=== PATIENT | female | born 1970 | race Caucasian/White ===

== ENCOUNTER 2016-11-18 09:50 | Emergency (ER) | payer MEDICAID ==
--- NOTE | 2016-11-18 10:39 | ED Physician Chart ---
Chief Complaint/HPI - Patient Information Date Seen:: 11/18/16 Time Seen:: 10:00 Chief Complaint:: trauma right small finger History of Present Illness:: 11 days ago getting up from supine position pushed herself up injuring right small finger. Is right hand dominant. Allergies:: Allergies Allergy/AdvReac Type Severity Reaction Status Date / Time No Known Allergies Allergy Verified 11/18/16 10:06 Vitals:: Vital Signs - 8 hr 11/18/16 10:06 Temp 98.5 F HR 78 RR 18 BP 123/74 O2 Sat % 97 Historian:: Patient Review:: Nurse's Note Reviewed Review of Systems - Review of Systems General/Constitutional: No fever Skin: No skin lesions Eyes: No loss of vision ENT: No earache Neck: No neck pain Cardio Vascular: No chest pain Pulmonary: No SOB GI: No nausea, No vomiting Musculoskeletal: Bone or joint pain Psychiatric: No prior psych history, No depression Hematopoietic: No bruising Allergic/Immuno: No urticaria Neurological: No syncope Past Medical History - Past Medical History Past Medical History: No significant medical hx Family History: Diabetes Melitus Social History: Non Smoker Surgical History: Hysterectomy Psychiatricy History: None Medication: None Family Medical History - Family Member Father Ethnicity: Hx Family Diabetes: Yes Physical Exam - Physical Examination General/Constitutional: Well-developed, well-nourished Head: Atraumatic Eyes: Lids, conjuctiva normal, PERRL Skin: Well hydrated ENMT: External ears, nose nl Neck: No nuchal rigidity Respiratory: Nl effort/Exclusion, Clear to Auscultation Cardio Vascular: RRR, No murmur, gallop, rubs GI: No tenderness/rebounding/guarding, No organomegaly, No hernia, Normal BS's : No CVA tenderness Other Extremities comments:: right small finger: about 15 degrees flexion of DIP joint; redness and swelling of distal segment; tenderness of DIP joint Labs/Radiology/EKG Results - Radiology Results Results: fracture base of distal phalanx right small finger Assessment - Assessment General Assessment: redness of distal segment may be due to cellulitis; fracture or tendon rupture is unlikely to cause redness ED Septic Shock - . Is Septic Shock (SBP<90, OR Lactate>4 mmol\L) present?: No - <6hrs of presentation: Vital Signs: Vital Signs - 8 hr 11/18/16 10:06 Temp 98.5 F HR 78 RR 18 BP 123/74 O2 Sat % 97 Reassessment (Disposition) - Reassessment Reassessment:: stak splint applied right small finger Reassessment Condition:: Unchanged - Diagnosis Diagnosis:: tendon rupture DIP joint right small finger; fracture base of distal phalanx right small finger; cellulitis distal segment right small finger - Aftercare/Follow up Instructions Aftercare/Follow-Up Instructions:: Refer to Discharge Instructions Medication Prescribed:: Keflex 500 mg #40 Sig 1 QID - Patient Disposition Discharge/Transfer:: Home Condition at Disposition:: Stable, Unchanged
--- NOTE | 2016-11-18 11:34 | Diagnostic Imaging Report ---
Right fifth finger 3 views Indication: Trauma Comparison: none Findings: There is a mildly displaced fracture involving the dorsal base of the fifth distal phalanx with surrounding soft tissue swelling. No dislocation. Impression: Mildly displaced fracture involving the dorsal base of the fifth distal phalanx with surrounding soft tissue swelling. Please correlate clinically. Results were administered to the referring team on 11/18/2016 at 11:30 AM.
== END 2016-11-18 10:50 | disposition home or self-care (01) ==
LOC: ER 09:50
DX: S62.636A Displaced fracture of distal phalanx of right little finger, initial encounter for closed fracture (principal); X58.XXXA Exposure to other specified factors, initial encounter; Y93.89 Activity, other specified; Y92.89 Other specified places as the place of occurrence of the external cause; Y99.8 Other external cause status
CPT/HCPCS: 73140-TC-F9; Z7502

== ENCOUNTER 2018-05-16 10:21 | Inpatient (IN) | payer MEDICAID ==
[2018-05-16] MEDS ORDERED: Sodium Chloride 0.9% 1,000 ML IV ONE (10:47)
[2018-05-16] MEDS ORDERED: Morphine Sulfate 2 mg/mL 1mL Syr IVP ONE (10:47)
--- NOTE | 2018-05-16 11:07 | ED Physician Chart ---
ED Chief Complaint/HPI - Patient Information Date Seen:: 05/16/18 Time Seen:: 10:30 Chief Complaint:: Abdominal Pain History of Present Illness:: onset x 12 hours of intermittent, sharp, crampy epigastric, ethan-umbilical, and lower abdominal pain with A/N/V/D x 3; pt denies trauma, H/As, S/T, neck pain,. cough, C/P, SOB, VB, VD, fever, chills, or urinary s/s Allergies:: Allergies Allergy/AdvReac Type Severity Reaction Status Date / Time No Known Allergies Allergy Verified 11/18/16 10:06 Vitals:: Vital Signs - 8 hr 05/16/18 10:29 Temp 96.9 F RR 96 BP 107/48 O2 Sat % 96 Historian:: Patient Review:: Nurse's Note Reviewed ED Review of Systems - Review of Systems General/Constitutional: Fever, No chills, No weight loss, No weakness, No diaphoresis, No edema, No loss of appetite Skin: No skin lesions, No rash, No bruising Head: No headache, No light-headedness Eyes: No loss of vision, No pain, No diplopia ENT: No earache, No nasal drainage, No sore throat, No tinnitus Neck: No neck pain, No swelling, No thyromegaly, No stiffness, No mass noted Cardio Vascular: No chest pain, No palpitations, No PND, No orthopnea, No edema Pulmonary: No SOB, No cough, No sputum, No wheezing GI: Nausea, Vomiting, Diarrhea, Pain, No melena, No hematochezia, No constipation, No hematemesis G/U: No dysuria, No frequency, No hematuria, No nacturia Purification Operator: No vaginal discharge, No abnormal vaginal bleed, No contraction Musculoskeletal: No bone or joint pain, No back pain, No muscle pain Endocrine: No polyuria, No polydipsia Psychiatric: No prior psych history, No depression, No anxiety, No suicidal ideation, No homicidal ideation, No auditory hallucination, No visual hallucination Hematopoietic: No bruising, No lymphadenopathy Allergic/Immuno: No urticaria, No angioedema Neurological: No syncope, No focal symptoms, No weakness, No paresthesia, No headache, No seizure, No dizziness, No confusion, No vertigo ED Past Medical History - Past Medical History Obtainable: Yes Past Medical History: HTN, CVA/TIA Family History: HTN Social History: Non Smoker, No Alcohol, No Drug Use, Surgical History: Hysterectomy Psychiatricy History: None Medication: Reviewed Family Medical History - Family Member Father Ethnicity: Hx Family Diabetes: Yes ED Physical Exam - Physical Examination General/Constitutional: Awake, Well-developed, well-nourished, Alert, No distress, GCS 15, Non-toxic appearing, Ambulatory Head: Atraumatic Eyes: Lids, conjuctiva normal, PERRL, EOMI Skin: Nl inspection, No rash, No skin lesions, No ecchymosis, Well hydrated, No lymphadenopathy ENMT: External ears, nose nl, TM canals nl, Nasal exam nl, Lips, teeth, gums nl , Oropharynx nl, Tonsils nl Neck: Nontender, Full ROM w/o pain, No JVD, No nuchal rigidity, No bruit, No mass, No stridor Other Neck comments:: supple; no meningeal signs; no cervical tenderness Respiratory: Nl effort/Exclusion, Clear to Auscultation, No Wheeze/Rhonchi/Rales Cardio Vascular: RRR, No murmur, gallop, rubs, NL S1 S2, Carotid/Femoral/Distal pulses equal bilaterally GI: No tenderness/rebounding/guarding, No organomegaly, No hernia, Normal BS's, Nondistended, No mass/bruits, No McBurney tenderness, Rectum exam nl Other GI comments:: + RLQ Tenderness; no pulsatile masses : No CVA tenderness Extremities: No tenderness or effusion, Full ROM, normal strength in all extremities, No edema, Normal digits & nails Neuro/Psych: Alert/oriented, DTR's symmetric, Normal sensory exam, Normal motor strength, Judgement/insight normal, Mood normal, Normal gait, No focal deficits Misc: Normal back, No paraspinal tenderness ED Labs/Radiology/EKG Results - Lab Results Comments:: Na+: 132; K+: 3.2; U/A: + Pyuria - Radiology Results Comments:: Possible Appendicitis - EKG Interpretations EKG Time:: 11:00 Rate & Rhythm: 88; NSR Comments:: non-specific st-t changes ED Septic Shock - . Is Septic Shock (SBP<90, OR Lactate>4 mmol\L) present?: No - <6hrs of presentation: Vital Signs: Vital Signs - 8 hr 05/16/18 10:29 Temp 96.9 F RR 96 BP 107/48 O2 Sat % 96 ED Reassessment (Disposition) - Reassessment Reassessment Condition:: Improved - Diagnosis Diagnosis:: Abdominal Pain; N/V/D; Appendicitis; UTI; AGE; Gastritis; IBD; Umbilical Hernia ; Nephrolithiasis; Hyponatremia; Dehydration; Hypokalemia - Aftercare/Follow up Instructions Aftercare/Follow-Up Instructions:: Counseled pt regarding lab results/diagnosis & need follow up, Counseled pt & family regarding lab results/diagnosis & need follow up - Patient Disposition Discharge/Transfer:: Acute Care w/in this hosp Accepting Physician:: Dr. Baugh Time Called:: 1215 Time Responded:: 12:15 Admitted to:: Telemetry Spoke to:: Dr. Baugh Admitting Medical Physician:: Dr. Baugh Condition at Disposition:: Stable, Improved
[2018-05-16 11:09] LABS: % BASOPHILS 3.4 % (0.0-2.0); % EOSINOPHILS 0.8 % (0.0-5.0); % LYMPHOCYTES 7.8 % (20.0-50.0); % MONOCYTES 0.8 % (2.0-10.0); % NEUTROPHILS 87.2 % (40.0-80.0); BASOPHILE ABSOLUTE 0.3 Th/cumm (0-0.2); EOSINOPHILE ABSOLUTE 0.1 Th/cmm (0.1-0.4); HEMATOCRIT 42.9 % (41.0-60); HEMOGLOBIN 14.6 gm/dL (12-16); LYMPHOCYTE ABSOLUTE 0.6 Th/cmm (1.5-3.0); MEAN CELL VOLUME 91.4 fl (81-100); MEAN CORPUSCULAR HEMOGLOBIN 31.1 pg (27.0-31.0); MEAN PLATELET VOLUME 8.8 fl; MONOCYTE ABSOLUTE 0.1 Th/cmm (0.3-1.0); NEUTROPHILE ABSOLUTE 7.1 Th/cmm (1.8-8.0); PLATELET COUNT 184 Th/cmm (150-400); RED CELL DISTRIBUTION WIDTH 13.1 % (11.5-20.0); WHITE BLOOD COUNT 8.2 Th/cmm (4.8-10.8)
[2018-05-16] MEDS ORDERED: Morphine Sulfate 2 mg/mL 1mL Syr ONE (11:12)
[2018-05-16 11:24] LABS: INR 0.92 (0.5-1.4); PROTHROMBIN TIME (TEST) 9.6 SECONDS (9.5-11.5)
[2018-05-16 11:27] LABS: ALB/GLOB RATIO 1.4 (1.0-1.8); ALBUMIN 4.2 gm/dL (3.7-5.3); ALKALINE PHOSPHATASE 97 U/L (34-104); AMYLASE SERUM 13 U/L (29-103); ANION GAP 14.1 (7.0-16.0); BILIRUBIN,TOTAL 1.1 mg/dL (0.3-1.0); BUN - UREA NITROGEN 16 mg/dL (7-25); CALCIUM SERUM 9.3 mg/dL (8.6-10.3); CARBON DIOXIDE 21.1 mEq/L (21.0-31.0); CHLORIDE 100 mEq/L (98-107); CHOLESTEROL 256 mg/dL (<200); CREATININE KINASE 27 U/L (30-223); GFR AFRICAN-AMERICAN > 60.0 ml/min (>90); GFR NON AFRICAN-AMERICAN > 60.0 ml/min; GLUCOSE 137 mg/dL (70-105); HDL -HIGH DENSITY LIPOPROTEIN 64 mg/dL (23-92); LIPASE 11 U/L (11-82); POTASSIUM SERUM 3.2 mEq/L (3.5-5.1); SGOT 55 U/L (13-39); SGPT/ALT 62 U/L (7-52); SODIUM SERUM 132 mEq/L (136-145); TOTAL PROTEIN,SERUM 7.3 gm/dL (6.0-8.3); TRIGLYCERIDES 144 mg/dL (<150)
[2018-05-16] MEDS ORDERED: Potassium Chloride 20 mEq ER Tab PO ONE ×2 (13:26→14:16)
[2018-05-16 13:44] LABS: URINE MICROSCOPIC INDICATED? YES; URINE SOURCE CLEAN C
[2018-05-16 13:49] LABS: URINE BILIRUBIN SMALL (NEGATIVE); URINE BLOOD TRACE (NEGATIVE); URINE CLARITY HAZY (CLEAR); URINE COLOR YELLOW; URINE GLUCOSE (UA) NEGATIVE (NEGATIVE); URINE KETONE TRACE mg/dL (NEGATIVE); URINE LEUKOCYTE ESTERASE TRACE (NEGATIVE); URINE NITRATE NEGATIVE (NEGATIVE); URINE PROTEIN TRACE mg/dL (NEGATIVE)
[2018-05-16 13:53] LABS: URINE BACTERIA 1+ /hpf (NONE SEEN); URINE EPITHELIAL CELLS MODERATE /lpf (FEW)
[2018-05-16 13:54] LABS: URINE FINE GRANULAR CAST 0-2 /lpf (NONE SEEN)
--- NOTE | 2018-05-16 14:15 | Diagnostic Imaging Report ---
CT abdomen and pelvis without intravenous contrast Indication: Abdominal pain and vomiting Comparison: None, Technique: Axial images were obtained from the lung bases to the bilateral proximal femurs without IV contrast. Coronal reconstructions were made. total DLP: 580, CTDI11.5 FINDINGS: Hypoventilatory atelectatic changes of the lung bases are noted. 3 mm right lower lobe granuloma is noted. Assessment of the solid organs is limited due to lack of IV contrast. There is fatty infiltration of the liver. No focal hepatic lesions. Punctate granuloma seen within the spleen. No focal pancreatic or adrenal lesions. Nonspecific bilateral perinephric inflammatory changes are noted. Slightly lobulated left renal borders are noted. No discrete mass is identified. No hydronephrosis. The patient is status post hysterectomy. There is diffuse fatty infiltration of the colonic mucosa. There are diffuse inflammatory changes seen within the right lower quadrant including surrounding the dilated partially air and fluid-filled appendix. Trace free fluid in the right lower quadrant is also noted with phlegmonous changes also seen in this region. Areas of bowel wall thickening also noted in this region including the terminal ileum. No free air identified. A small fat-containing umbilical hernia is noted. Mild atherosclerosis is noted. Degenerative changes of the spine are noted. IMPRESSION: Inflammatory changes within the right lower quadrant including mild phlegmonous changes changes and small amount of free fluid. Areas of bowel wall thickening are also noted including the terminal ileum. There is dilated and partially air-filled appendix. Differential diagnosis includes etiologies such as inflammatory bowel disease. Appendicitis would be considered less likely but cannot be completely excluded. Clinical correlation and follow-up is recommended. Fatty infiltration of the colonic mucosa which may be due to underlying inflammatory bowel disease. Nonspecific bilateral perinephric inflammatory changes. Slight lobulation of the left renal margins without evidence of discrete mass. Ultrasound or CT with IV contrast would further clarify if indicated. Fatty liver. Small fat-containing umbilical hernia. Evidence of prior hysterectomy. Final results are listed to the ER on 05/16/2018 at 2:10 PM.
[2018-05-16] MEDS ORDERED: cefTRIAXone 1 GM in Sodium Chloride 0.9% 50 ML IV ONE (14:24)
[2018-05-16] MEDS: D5-0.9NS w/KCL 20mEq 1,000 ML IV SCH (17:48)
[2018-05-16] MEDS ORDERED: Bupivacaine 0.25% W/Ep 10 mL Vial ONE (18:17)
--- NOTE | 2018-05-16 18:21 | General Progress Note ---
Subjective - Review of Systems Service Date: 05/16/18 Events since last encounter: CONSULT DICTATED CT DILATED APPENDIX, FATTY LIVER PE TENDER RLQ WITH REBOUND PLAN; LAP VS OPEN APPENDECTOMY WITH HERNIA REPAIR Objective - Results Result Diagrams: 05/16/18 11:00 05/16/18 11:00 Recent Labs: Laboratory Last Values WBC 8.2 Th/cmm (4.8-10.8) 05/16/18 11:00 RBC 4.70 Mil/cmm (3.80-5.10) 05/16/18 11:00 Hgb 14.6 gm/dL (12-16) 05/16/18 11:00 Hct 42.9 % (41.0-60) 05/16/18 11:00 MCV 91.4 fl (81-100) 05/16/18 11:00 MCH 31.1 pg (27.0-31.0) H 05/16/18 11:00 MCHC Differential 34.0 pg (28.0-36.0) 05/16/18 11:00 RDW 13.1 % (11.5-20.0) 05/16/18 11:00 Plt Count 184 Th/cmm (150-400) 05/16/18 11:00 MPV 8.8 fl 05/16/18 11:00 Neutrophils % 87.2 % (40.0-80.0) H 05/16/18 11:00 Lymphocytes % 7.8 % (20.0-50.0) L 05/16/18 11:00 Monocytes % 0.8 % (2.0-10.0) L 05/16/18 11:00 Eosinophils % 0.8 % (0.0-5.0) 05/16/18 11:00 Basophils % 3.4 % (0.0-2.0) H 05/16/18 11:00 Neutrophils (Manual) Not Reportable 05/16/18 11:00 PT 9.6 SECONDS (9.5-11.5) 05/16/18 11:00 INR 0.92 (0.5-1.4) 05/16/18 11:00 Sodium 132 mEq/L (136-145) L 05/16/18 11:00 Potassium 3.2 mEq/L (3.5-5.1) L 05/16/18 11:00 Chloride 100 mEq/L (98-107) 05/16/18 11:00 Carbon Dioxide 21.1 mEq/L (21.0-31.0) 05/16/18 11:00 Anion Gap 14.1 (7.0-16.0) 05/16/18 11:00 BUN 16 mg/dL (7-25) 05/16/18 11:00 Creatinine 1.0 mg/dL (0.6-1.2) 05/16/18 11:00 Est GFR ( Amer) > 60.0 ml/min (>90) 05/16/18 11:00 Est GFR (Non-Af Amer) > 60.0 ml/min 05/16/18 11:00 BUN/Creatinine Ratio 16.0 05/16/18 11:00 Glucose 137 mg/dL (70-105) H 05/16/18 11:00 Calcium 9.3 mg/dL (8.6-10.3) 05/16/18 11:00 Total Bilirubin 1.1 mg/dL (0.3-1.0) H 05/16/18 11:00 AST 55 U/L (13-39) H 05/16/18 11:00 ALT 62 U/L (7-52) H 05/16/18 11:00 Alkaline Phosphatase 97 U/L (34-104) 05/16/18 11:00 Creatine Kinase 27 U/L (30-223) L 05/16/18 11:00 Troponin I < 0.01 ng/mL (0.01-0.05) L 05/16/18 11:00 B-Natriuretic Peptide 10.4 pg/mL (5.0-100.0) 05/16/18 11:00 Total Protein 7.3 gm/dL (6.0-8.3) 05/16/18 11:00 Albumin 4.2 gm/dL (3.7-5.3) 05/16/18 11:00 Globulin 3.1 gm/dL 05/16/18 11:00 Albumin/Globulin Ratio 1.4 (1.0-1.8) 05/16/18 11:00 Triglycerides 144 mg/dL (<150) 05/16/18 11:00 Cholesterol 256 mg/dL (<200) H 05/16/18 11:00 LDL Cholesterol Direct 173 mg/dL (75-193) 05/16/18 11:00 HDL Cholesterol 64 mg/dL (23-92) 05/16/18 11:00 Amylase 13 U/L (29-103) L 05/16/18 11:00 Lipase 11 U/L (11-82) 05/16/18 11:00 Serum , Qual NEGATIVE (NEGATIVE) 05/16/18 11:00 Urine Source CLEAN C 05/16/18 13:29 Urine Color YELLOW 05/16/18 13:29 Urine Clarity HAZY (CLEAR) 05/16/18 13:29 Urine pH 6.0 (4.6 - 8.0) 05/16/18 13:29 Ur Specific [place] 1.010 (1.005-1.030) 05/16/18 13:29 Urine Protein TRACE mg/dL (NEGATIVE) 05/16/18 13:29 Urine Glucose (UA) NEGATIVE mg/dL (NEGATIVE) 05/16/18 13:29 Urine Ketones TRACE mg/dL (NEGATIVE) 05/16/18 13:29 Urine Blood TRACE (NEGATIVE) 05/16/18 13:29 Urine Nitrate NEGATIVE (NEGATIVE) 05/16/18 13:29 Urine Bilirubin SMALL (NEGATIVE) H 05/16/18 13:29 Urine Urobilinogen 2.0 E.U./dL (0.2 - 1.0) 05/16/18 13:29 Ur Leukocyte Esterase TRACE (NEGATIVE) H 05/16/18 13:29 Urine RBC 2-5 /hpf (0-5) 05/16/18 13:29 Urine WBC 6-10 /hpf (0-5) H 05/16/18 13:29 Ur Epithelial Cells MODERATE /lpf (FEW) 05/16/18 13:29 Urine Bacteria 1+ /hpf (NONE SEEN) H 05/16/18 13:29 Fine Granular Casts 0-2 /lpf (NONE SEEN) H 05/16/18 13:29 Coarse Granular Casts 2-5 /lpf (NONE SEEN) H 05/16/18 13:29 - Physical Exam Vitals and I&O: Vital Signs Temp 99.5 F 05/16/18 17:00 Pulse 93 05/16/18 17:00 Resp 20 05/16/18 17:16 BP 108/69 05/16/18 17:00 Pulse Ox 95 05/16/18 17:00 Intake & Output 05/15/18 05/16/18 05/16/18 18:59 06:59 18:59 Weight (lbs) 76.657 kg Other: # Voids 1 Stool Characteristics Formed Weight Source Patient stated Active Medications: Current Medications Potassium Chloride/Dextrose/Sod Cl (D5-0.9ns W/Kcl 20meq) 1,000 mls @ 125 mls/ hr IV .Q8H BHARTI Stop: 07/15/18 15:51 Last Admin: 05/16/18 17:48 Dose: 125 mls/hr Piperacillin Sod/Tazobactam (Sod 3.375 gm/ Sodium Chloride) 50 mls @ 100 mls/ hr IV Q6HR BHARTI Stop: 07/15/18 17:59 Last Admin: 05/16/18 17:49 Dose: 100 mls/hr Morphine Sulfate (Morphine) 4 mg IV Q4H PRN PRN Reason: Pain (Severe) Stop: 07/15/18 15:59
[2018-05-16] MEDS ORDERED: fentaNYL Citrate 100 mcg/2mL Vial ONE (20:00)
[2018-05-16] MEDS ORDERED: Neostigmine 10mg/10mL Vial ONE (20:05)
[2018-05-16] MEDS ORDERED: Labetalol 5 mg/mL 20 mL Vial ONE (20:10)
--- NOTE | 2018-05-16 20:10 | Consultation ---
DATE OF CONSULTATION: 05/16/2018 SURGICAL CONSULTATION REFERRING PHYSICIAN: Dr. Baugh. REASON FOR CONSULTATION: Abdominal pain. Thank you for referring this patient to me. HISTORY OF PRESENT ILLNESS: This is a 47-year-old female with 2-day history of abdominal pain, increasingly severe, associated nausea and vomiting. She denied diarrhea. The patient smokes about 3-4 cigarettes a day. She denies alcohol intake. PAST MEDICAL HISTORY: Includes vaginal hysterectomy and tubal ligation. Otherwise, she does not take any medication. LABORATORY STUDIES: Show CBC to be normal. The chemistry is abnormal with a slight elevation in the liver function test and cholesterol is high at 256. Lipase low at 13. A CT scan of the abdomen shows a small fat containing umbilical hernia. There is fatty infiltration of the liver. There is a dilated partially air and fluid filled appendix with trace fluid in the right lower quadrant. PHYSICAL EXAMINATION: There is severe tenderness in the right lower quadrant with rebound. Scar from previous surgeries noted. IMPRESSION: 1. Acute appendicitis. 2. Fatty infiltration of the liver. 3. Hypercholesterolemia. 4. Moderate obesity. PLAN: 1. Laparoscopic versus open appendectomy. 2. Repair of umbilical hernia. Informed consent discussed with the patient and the son who was at bedside with possible complications that might include among other things, bleeding, infection, last unintended injury to internal organs, open appendectomy, and those related to anesthesia. The patient and son understands and will proceed with a laparoscopic versus open appendectomy and hernia repair. [facility]# [id number]
[2018-05-16] MEDS ORDERED: fentaNYL Citrate 100 mcg/2mL Vial IVP PRN (20:46)
--- NOTE | 2018-05-16 21:25 | Operative Report ---
DATE OF SURGERY: 05/16/2018 PREOPERATIVE DIAGNOSES: 1. Acute appendicitis. 2. Incarcerated umbilical hernia (omentum). 3. Post-vaginal hysterectomy. POSTOPERATIVE DIAGNOSES: 1. Perforated appendicitis. 2. Incarcerated umbilical hernia (omentum). 3. Post-vaginal hysterectomy. OPERATION DONE: 1. Laparoscopic appendectomy. 2. Primary repair of incarcerated umbilical hernia. SURGEON: Dr. Christianne Butterfield. ANESTHESIA: General. ANESTHESIOLOGIST: Dr. Parker. ESTIMATED BLOOD LOSS: 5 mL. OPERATIVE FINDINGS: Perforated appendix with gangrenous mid portion of the body of the appendix, which was markedly swollen. DRAIN: A Mazin-Mosquera drain was left in place. DESCRIPTION OF PROCEDURE: The patient was given general anesthesia. The abdomen was prepped with ChloraPrep and draped in appropriate manner. An infraumbilical incision was made along the skin line. Bleeders were coagulated. The incision was carried all the way down to the peritoneum and the finger was introduced. There was incarcerated omentum and the umbilicus, which was freed back into the abdominal cavity. Old Nurolon was then sutured to the fascia as a 10-mm trocar was introduced. CO2 was insufflated. Scope was introduced. There was good visualization of the intra-abdominal cavity. A 5 mm was placed in the lower abdomen at midline. A 12-mm trocar was placed in the left flank. The operating table was lowered at the head and turned to the left side. The appendix was found to be necrotic at the mid portion. In the process of manipulation, this exuded purulent material and culture was taken. The base of the appendix was easily identified and a clip was applied. The rest of the mesoappendix serially clamped with [employer] and transected. Following satisfactory hemostasis, some clips were applied. Irrigation with saline solution and aspiration of fluid was then done. A Mazin-Mosquera drain was left in the area of the appendix. The appendix removed in Endobag. Following satisfactory hemostasis confirmation of the bleeding site, trocar sites were infiltrated with 0.5% Marcaine with epinephrine. The skin incision closed with elizabeth. The patient tolerated the procedure well. JOB# [id number]
[2018-05-16] MEDS: metroNIDAZOLE 500mg/NS 100mL 500 MG/100 ML BAG IV SCH (22:54)
--- NOTE | 2018-05-17 00:11 | History & Physical ---
ADMIT DATE: 05/16/2018 CHIEF COMPLAINT: Right lower abdominal pain for a few days' duration. HISTORY OF PRESENT ILLNESS: The patient is a 47-year-old female presented to the Emergency Room with severe pain of the right lower abdomen, evaluated by the ER physician. Initial workup significant for possible acute appendicitis, admitted to the hospital, started on IV fluid, n.p.o. Dr. Butterfield consulted on the case. No nausea, no vomiting, no fever, no chills. PAST MEDICAL HISTORY: Not significant. PAST SURGICAL HISTORY: Not significant. ALLERGIES: None. MEDICATIONS: Follow admission reconciliation. SOCIAL HISTORY: No smoking, alcohol, or drug use. FAMILY HISTORY: Noncontributory. REVIEW OF SYSTEMS: IMMUNOSYSTEM: No history of chronic renal disorder. CARDIOVASCULAR SYSTEM: No coronary artery disease. ENDOCRINE SYSTEM: No diabetes or thyroid problem. GASTROINTESTINAL SYSTEM: No upper or lower gastrointestinal bleed. NEUROLOGICAL SYSTEM: No seizure disorder. MUSCULOSKELETAL SYSTEM: No muscular atrophy. HEMATOLOGIC SYSTEM: No bleeding tendencies. RESPIRATORY SYSTEM: No asthma. GENITOURINARY: No dysuria or hematuria. PHYSICAL EXAMINATION: GENERAL: He is awake, alert, oriented, mildly in pain, not in distress. VITAL SIGNS: Temperature 98.2, heart rate 82, and blood pressure 122/69. HEENT: Normocephalic. Pupils reactive to light and accommodation. Sclerae clear. NECK: Supple. Negative for lymphadenopathy, JVD, or bruit. CHEST: Entry of air bilateral normal. No rhonchi or wheezing. HEART: S1, S2 normal. No gallop rhythm. ABDOMEN: Soft. Tender in the right lower abdomen. Rebound negative. Bowel sounds positive. EXTREMITIES: No edema. NEUROLOGIC: Awake, alert, oriented. No focal motor deficits. LABORATORY DATA: White cell ____, hemoglobin 14.6, hematocrit 42.9, and platelets 184. Sodium 132, potassium 3.2, BUN 16, and creatinine 0.06. ____1.0. ASSESSMENT: Acute appendicitis. PLAN: The patient admitted to the hospital under Dr. Baugh's service, started on IV fluid, IV antibiotic, n.p.o. Dr. Butterfield consulted on the case. The patient is a full code. JOB# [id number]
[2018-05-17] MEDS: Morphine Sulfate 4 mg/mL 1mL Syr IV PRN ×5 (06:05→23:37)
[2018-05-17 06:25] LABS: % BASOPHILS 0.1 % (0.0-2.0); % EOSINOPHILS 0.5 % (0.0-5.0); % LYMPHOCYTES 12.6 % (20.0-50.0); % MONOCYTES 4.5 % (2.0-10.0); % NEUTROPHILS 82.3 % (40.0-80.0); HEMOGLOBIN 12.6 gm/dL (12-16); MEAN CELL VOLUME 90.8 fl (81-100); MEAN CORPUSCULAR HEMOGLOBIN 31.3 pg (27.0-31.0); MEAN CORPUSCULAR HGB CONC 34.5 pg (28.0-36.0); MEAN PLATELET VOLUME 8.9 fl; MONOCYTE ABSOLUTE 0.4 Th/cmm (0.3-1.0); NEUTROPHILE ABSOLUTE 6.9 Th/cmm (1.8-8.0); PLATELET COUNT 155 Th/cmm (150-400); RED BLOOD COUNT 4.02 Mil/cmm (3.80-5.10); RED CELL DISTRIBUTION WIDTH 13.1 % (11.5-20.0); WHITE BLOOD COUNT 8.3 Th/cmm (4.8-10.8)
[2018-05-17 06:31] LABS: HEMATOCRIT 36.5 % (41.0-60)
[2018-05-17 06:37] LABS: ALB/GLOB RATIO 1.2 (1.0-1.8); ALBUMIN 3.4 gm/dL (3.7-5.3); ALKALINE PHOSPHATASE 70 U/L (34-104); ANION GAP 12.3 (7.0-16.0); BILIRUBIN,TOTAL 0.9 mg/dL (0.3-1.0); BUN - UREA NITROGEN 18 mg/dL (7-25); CALCIUM SERUM 8.5 mg/dL (8.6-10.3); CARBON DIOXIDE 21.5 mEq/L (21.0-31.0); CHLORIDE 108 mEq/L (98-107); CREATININE - SERUM 0.9 mg/dL (0.6-1.2); GFR AFRICAN-AMERICAN > 60.0 ml/min (>90); GFR NON AFRICAN-AMERICAN > 60.0 ml/min; GLUCOSE 123 mg/dL (70-105); POTASSIUM SERUM 3.8 mEq/L (3.5-5.1); SGOT 26 U/L (13-39); SGPT/ALT 39 U/L (7-52); SODIUM SERUM 138 mEq/L (136-145); TOTAL PROTEIN,SERUM 6.2 gm/dL (6.0-8.3)
[2018-05-17] MEDS: metroNIDAZOLE 500mg/NS 100mL 500 MG/100 ML BAG IV SCH ×3 (06:49→20:16)
--- NOTE | 2018-05-17 09:08 | Diagnostic Imaging Report ---
Chest x-ray single view History: Preop Comparison: None The heart size is normal. No focal pulmonary parenchymal processes. No hilar or mediastinal abnormalities. Impression: No acute abnormalities
[2018-05-17] MEDS: D5-0.9NS w/KCL 20mEq 1,000 ML IV SCH ×2 (09:53→23:38)
--- NOTE | 2018-05-17 14:31 | General Progress Note ---
Subjective - Review of Systems Service Date: 05/17/18 Events since last encounter: labs ok tolerating full liquids perforated appendicitis Objective - Results Result Diagrams: 05/17/18 05:30 05/17/18 05:30 Recent Labs: Laboratory Last Values WBC 8.3 Th/cmm (4.8-10.8) 05/17/18 05:30 RBC 4.02 Mil/cmm (3.80-5.10) 05/17/18 05:30 Hgb 12.6 gm/dL (12-16) 05/17/18 05:30 Hct 36.5 % (41.0-60) L D 05/17/18 05:30 MCV 90.8 fl (81-100) 05/17/18 05:30 MCH 31.3 pg (27.0-31.0) H 05/17/18 05:30 MCHC Differential 34.5 pg (28.0-36.0) 05/17/18 05:30 RDW 13.1 % (11.5-20.0) 05/17/18 05:30 Plt Count 155 Th/cmm (150-400) 05/17/18 05:30 MPV 8.9 fl 05/17/18 05:30 Neutrophils % 82.3 % (40.0-80.0) H 05/17/18 05:30 Lymphocytes % 12.6 % (20.0-50.0) L 05/17/18 05:30 Monocytes % 4.5 % (2.0-10.0) 05/17/18 05:30 Eosinophils % 0.5 % (0.0-5.0) 05/17/18 05:30 Basophils % 0.1 % (0.0-2.0) 05/17/18 05:30 Neutrophils (Manual) Not Reportable 05/16/18 11:00 PT 9.6 SECONDS (9.5-11.5) 05/16/18 11:00 INR 0.92 (0.5-1.4) 05/16/18 11:00 Sodium 138 mEq/L (136-145) 05/17/18 05:30 Potassium 3.8 mEq/L (3.5-5.1) 05/17/18 05:30 Chloride 108 mEq/L (98-107) H 05/17/18 05:30 Carbon Dioxide 21.5 mEq/L (21.0-31.0) 05/17/18 05:30 Anion Gap 12.3 (7.0-16.0) 05/17/18 05:30 BUN 18 mg/dL (7-25) 05/17/18 05:30 Creatinine 0.9 mg/dL (0.6-1.2) 05/17/18 05:30 Est GFR ( Amer) > 60.0 ml/min (>90) 05/17/18 05:30 Est GFR (Non-Af Amer) > 60.0 ml/min 05/17/18 05:30 BUN/Creatinine Ratio 20.0 05/17/18 05:30 Glucose 123 mg/dL (70-105) H 05/17/18 05:30 POC Glucose 128 MG/DL (70 - 105) H 05/16/18 18:16 Calcium 8.5 mg/dL (8.6-10.3) L 05/17/18 05:30 Total Bilirubin 0.9 mg/dL (0.3-1.0) 05/17/18 05:30 AST 26 U/L (13-39) 05/17/18 05:30 ALT 39 U/L (7-52) 05/17/18 05:30 Alkaline Phosphatase 70 U/L (34-104) 05/17/18 05:30 Creatine Kinase 27 U/L (30-223) L 05/16/18 11:00 Troponin I < 0.01 ng/mL (0.01-0.05) L 05/16/18 11:00 B-Natriuretic Peptide 10.4 pg/mL (5.0-100.0) 05/16/18 11:00 Total Protein 6.2 gm/dL (6.0-8.3) 05/17/18 05:30 Albumin 3.4 gm/dL (3.7-5.3) L 05/17/18 05:30 Globulin 2.8 gm/dL 05/17/18 05:30 Albumin/Globulin Ratio 1.2 (1.0-1.8) 05/17/18 05:30 Triglycerides 144 mg/dL (<150) 05/16/18 11:00 Cholesterol 256 mg/dL (<200) H 05/16/18 11:00 LDL Cholesterol Direct 173 mg/dL (75-193) 05/16/18 11:00 HDL Cholesterol 64 mg/dL (23-92) 05/16/18 11:00 Amylase 13 U/L (29-103) L 05/16/18 11:00 Lipase 11 U/L (11-82) 05/16/18 11:00 Serum , Qual NEGATIVE (NEGATIVE) 05/16/18 11:00 Urine Source CLEAN C 05/16/18 13:29 Urine Color YELLOW 05/16/18 13:29 Urine Clarity HAZY (CLEAR) 05/16/18 13:29 Urine pH 6.0 (4.6 - 8.0) 05/16/18 13:29 Ur Specific [place] 1.010 (1.005-1.030) 05/16/18 13:29 Urine Protein TRACE mg/dL (NEGATIVE) 05/16/18 13:29 Urine Glucose (UA) NEGATIVE mg/dL (NEGATIVE) 05/16/18 13:29 Urine Ketones TRACE mg/dL (NEGATIVE) 05/16/18 13:29 Urine Blood TRACE (NEGATIVE) 05/16/18 13:29 Urine Nitrate NEGATIVE (NEGATIVE) 05/16/18 13:29 Urine Bilirubin SMALL (NEGATIVE) H 05/16/18 13:29 Urine Urobilinogen 2.0 E.U./dL (0.2 - 1.0) 05/16/18 13:29 Ur Leukocyte Esterase TRACE (NEGATIVE) H 05/16/18 13:29 Urine RBC 2-5 /hpf (0-5) 05/16/18 13:29 Urine WBC 6-10 /hpf (0-5) H 05/16/18 13:29 Ur Epithelial Cells MODERATE /lpf (FEW) 05/16/18 13:29 Urine Bacteria 1+ /hpf (NONE SEEN) H 05/16/18 13:29 Fine Granular Casts 0-2 /lpf (NONE SEEN) H 05/16/18 13:29 Coarse Granular Casts 2-5 /lpf (NONE SEEN) H 05/16/18 13:29 - Physical Exam Vitals and I&O: Vital Signs Temp 97.3 F 05/17/18 11:54 Pulse 91 05/17/18 11:54 Resp 18 05/17/18 11:54 BP 107/69 05/17/18 11:54 Pulse Ox 95 05/17/18 11:54 Intake & Output 05/16/18 05/17/18 05/17/18 18:59 06:59 18:59 Intake Total 50 1200 100 Output Total 50 Balance 50 1150 100 Weight (lbs) 76.657 kg 84.822 kg Intake: Intake, IV Amount 50 1200 100 D5-0.9NS w/KCL 20mEq 1, 1000 000 ml @ 125 mls/hr IV . Q8H [facility] Rx#:[id number] Piperacillin Sodium/ 50 100 Tazobact 3.375 gm In Sodium Chloride 0.9% 50 ml @ 100 mls/hr IV Q6HR [facility] Rx#:[id number] metroNIDAZOLE 500mg/NS 100 100 100mL 500 mg In 100 ml @ 100 mls/hr IV Q8HR [facility] Rx #:[id number] Output: Drainage 50 Lower Medial Abdomen 50 Other: # Voids 1 1 Stool Characteristics Formed Weight Source Patient stated Bedscale Active Medications: Current Medications Fentanyl Citrate (Sublimaze) 50 mcg IVP UD PRN PRN Reason: Pain (Moderate) Stop: 05/17/18 20:45 Potassium Chloride/Dextrose/Sod Cl (D5-0.9ns W/Kcl 20meq) 1,000 mls @ 125 mls/ hr IV .Q8H [facility] Stop: 07/15/18 15:51 Last Admin: 05/17/18 09:53 Dose: 125 mls/hr Piperacillin Sod/Tazobactam (Sod 3.375 gm/ Sodium Chloride) 50 mls @ 100 mls/ hr IV Q6HR [facility] Stop: 07/15/18 17:59 Last Admin: 05/17/18 11:38 Dose: 100 mls/hr Metronidazole (Flagyl) 500 mg in 100 mls @ 100 mls/hr IV Q8HR [facility] Stop: 07/15/18 20:59 Last Admin: 05/17/18 13:48 Dose: 100 mls/hr Morphine Sulfate (Morphine) 4 mg IV Q4H PRN PRN Reason: Pain (Severe) Stop: 07/15/18 15:59 Last Admin: 05/17/18 10:08 Dose: 4 mg
[2018-05-17 15:26] LABS: % BASOPHILS 1.1 % (0.0-2.0); % EOSINOPHILS 2.3 % (0.0-5.0); % LYMPHOCYTES 11.8 % (20.0-50.0); % MONOCYTES 5.6 % (2.0-10.0); % NEUTROPHILS 79.2 % (40.0-80.0); BASOPHILE ABSOLUTE 0.1 Th/cumm (0-0.2); EOSINOPHILE ABSOLUTE 0.2 Th/cmm (0.1-0.4); HEMATOCRIT 36.2 % (41.0-60); HEMOGLOBIN 12.5 gm/dL (12-16); MEAN CELL VOLUME 91.5 fl (81-100); MEAN CORPUSCULAR HEMOGLOBIN 31.6 pg (27.0-31.0); MEAN CORPUSCULAR HGB CONC 34.5 pg (28.0-36.0); MEAN PLATELET VOLUME 8.9 fl; MONOCYTE ABSOLUTE 0.5 Th/cmm (0.3-1.0); NEUTROPHILE ABSOLUTE 6.3 Th/cmm (1.8-8.0); PLATELET COUNT 168 Th/cmm (150-400); RED BLOOD COUNT 3.96 Mil/cmm (3.80-5.10); RED CELL DISTRIBUTION WIDTH 13.3 % (11.5-20.0); WHITE BLOOD COUNT 8.1 Th/cmm (4.8-10.8)
--- NOTE | 2018-05-17 22:16 | Internal Medicine Prog Note ---
Internal Medicine Subjective - Subjective Service Date: 05/17/18 Patient seen and examined:: without staff (SHE STILL HAS PAIN) Patient is:: in bed, talking Patient Complaints of:: other (SHE HAS PAIN AT SITE OF SURGERY) Per staff patient has:: no adverse event Internal Medicine Objective - Results Result Diagrams: 05/17/18 14:56 05/17/18 05:30 Recent Labs: Laboratory Last Values WBC 8.1 Th/cmm (4.8-10.8) 05/17/18 14:56 RBC 3.96 Mil/cmm (3.80-5.10) 05/17/18 14:56 Hgb 12.5 gm/dL (12-16) 05/17/18 14:56 Hct 36.2 % (41.0-60) L 05/17/18 14:56 MCV 91.5 fl (81-100) 05/17/18 14:56 MCH 31.6 pg (27.0-31.0) H 05/17/18 14:56 MCHC Differential 34.5 pg (28.0-36.0) 05/17/18 14:56 RDW 13.3 % (11.5-20.0) 05/17/18 14:56 Plt Count 168 Th/cmm (150-400) 05/17/18 14:56 MPV 8.9 fl 05/17/18 14:56 Neutrophils % 79.2 % (40.0-80.0) 05/17/18 14:56 Lymphocytes % 11.8 % (20.0-50.0) L 05/17/18 14:56 Monocytes % 5.6 % (2.0-10.0) 05/17/18 14:56 Eosinophils % 2.3 % (0.0-5.0) 05/17/18 14:56 Basophils % 1.1 % (0.0-2.0) 05/17/18 14:56 Neutrophils (Manual) Not Reportable 05/16/18 11:00 PT 9.6 SECONDS (9.5-11.5) 05/16/18 11:00 INR 0.92 (0.5-1.4) 05/16/18 11:00 Sodium 138 mEq/L (136-145) 05/17/18 05:30 Potassium 3.8 mEq/L (3.5-5.1) 05/17/18 05:30 Chloride 108 mEq/L (98-107) H 05/17/18 05:30 Carbon Dioxide 21.5 mEq/L (21.0-31.0) 05/17/18 05:30 Anion Gap 12.3 (7.0-16.0) 05/17/18 05:30 BUN 18 mg/dL (7-25) 05/17/18 05:30 Creatinine 0.9 mg/dL (0.6-1.2) 05/17/18 05:30 Est GFR ( Amer) > 60.0 ml/min (>90) 05/17/18 05:30 Est GFR (Non-Af Amer) > 60.0 ml/min 05/17/18 05:30 BUN/Creatinine Ratio 20.0 05/17/18 05:30 Glucose 123 mg/dL (70-105) H 05/17/18 05:30 POC Glucose 128 MG/DL (70 - 105) H 05/16/18 18:16 Calcium 8.5 mg/dL (8.6-10.3) L 05/17/18 05:30 Total Bilirubin 0.9 mg/dL (0.3-1.0) 05/17/18 05:30 AST 26 U/L (13-39) 05/17/18 05:30 ALT 39 U/L (7-52) 05/17/18 05:30 Alkaline Phosphatase 70 U/L (34-104) 05/17/18 05:30 Creatine Kinase 27 U/L (30-223) L 05/16/18 11:00 Troponin I < 0.01 ng/mL (0.01-0.05) L 05/16/18 11:00 B-Natriuretic Peptide 10.4 pg/mL (5.0-100.0) 05/16/18 11:00 Total Protein 6.2 gm/dL (6.0-8.3) 05/17/18 05:30 Albumin 3.4 gm/dL (3.7-5.3) L 05/17/18 05:30 Globulin 2.8 gm/dL 05/17/18 05:30 Albumin/Globulin Ratio 1.2 (1.0-1.8) 05/17/18 05:30 Triglycerides 144 mg/dL (<150) 05/16/18 11:00 Cholesterol 256 mg/dL (<200) H 05/16/18 11:00 LDL Cholesterol Direct 173 mg/dL (75-193) 05/16/18 11:00 HDL Cholesterol 64 mg/dL (23-92) 05/16/18 11:00 Amylase 13 U/L (29-103) L 05/16/18 11:00 Lipase 11 U/L (11-82) 05/16/18 11:00 Serum , Qual NEGATIVE (NEGATIVE) 05/16/18 11:00 Urine Source CLEAN C 05/16/18 13:29 Urine Color YELLOW 05/16/18 13:29 Urine Clarity HAZY (CLEAR) 05/16/18 13:29 Urine pH 6.0 (4.6 - 8.0) 05/16/18 13:29 Ur Specific [place] 1.010 (1.005-1.030) 05/16/18 13:29 Urine Protein TRACE mg/dL (NEGATIVE) 05/16/18 13:29 Urine Glucose (UA) NEGATIVE mg/dL (NEGATIVE) 05/16/18 13:29 Urine Ketones TRACE mg/dL (NEGATIVE) 05/16/18 13:29 Urine Blood TRACE (NEGATIVE) 05/16/18 13:29 Urine Nitrate NEGATIVE (NEGATIVE) 05/16/18 13:29 Urine Bilirubin SMALL (NEGATIVE) H 05/16/18 13:29 Urine Urobilinogen 2.0 E.U./dL (0.2 - 1.0) 05/16/18 13:29 Ur Leukocyte Esterase TRACE (NEGATIVE) H 05/16/18 13:29 Urine RBC 2-5 /hpf (0-5) 05/16/18 13:29 Urine WBC 6-10 /hpf (0-5) H 05/16/18 13:29 Ur Epithelial Cells MODERATE /lpf (FEW) 05/16/18 13:29 Urine Bacteria 1+ /hpf (NONE SEEN) H 05/16/18 13:29 Fine Granular Casts 0-2 /lpf (NONE SEEN) H 05/16/18 13:29 Coarse Granular Casts 2-5 /lpf (NONE SEEN) H 05/16/18 13:29 - Physical Exam Vitals and I&O: Vital Signs Temp 99.5 F 07/25/18 20:00 Pulse 95 05/17/18 20:00 Resp 18 05/17/18 20:00 BP 113/59 05/17/18 20:00 Pulse Ox 91 05/17/18 20:00 Intake & Output 05/17/18 05/17/18 05/18/18 06:59 18:59 06:59 Intake Total 1200 250 Output Total 50 Balance 1150 250 Weight (lbs) 84.822 kg Intake: Intake, IV Amount 1200 250 D5-0.9NS w/KCL 20mEq 1, 1000 000 ml @ 125 mls/hr IV . Q8H [facility] Rx#:[id number] Piperacillin Sodium/ 100 50 Tazobact 3.375 gm In Sodium Chloride 0.9% 50 ml @ 100 mls/hr IV Q6HR [facility] Rx#:[id number] metroNIDAZOLE 500mg/NS 100 200 100mL 500 mg In 100 ml @ 100 mls/hr IV Q8HR [facility] Rx #:[id number] Output: Drainage 50 Lower Medial Abdomen 50 Other: # Voids 1 Weight Source Bedscale Active Medications: Current Medications Potassium Chloride/Dextrose/Sod Cl (D5-0.9ns W/Kcl 20meq) 1,000 mls @ 125 mls/ hr IV .Q8H [facility] Stop: 07/15/18 15:51 Last Admin: 05/17/18 09:53 Dose: 125 mls/hr Piperacillin Sod/Tazobactam (Sod 3.375 gm/ Sodium Chloride) 50 mls @ 100 mls/ hr IV Q6HR [facility] Stop: 07/15/18 17:59 Last Admin: 05/17/18 17:32 Dose: 100 mls/hr Metronidazole (Flagyl) 500 mg in 100 mls @ 100 mls/hr IV Q8HR [facility] Stop: 07/15/18 20:59 Last Admin: 05/17/18 20:16 Dose: 100 mls/hr Morphine Sulfate (Morphine) 4 mg IV Q4H PRN PRN Reason: Pain (Severe) Stop: 07/15/18 15:59 Last Admin: 05/17/18 19:43 Dose: 4 mg General: alert HEENT: NC/AT, PERRLA, EOMI, anicteric sclerae, throat clear Neck: Supple, No JVD, No thyromegaly, +2 carotid pulse wo bruit, No LAD Lungs: CTAB Cardiovascular: RRR, Normal S1, Normal S2 Abdomen: tender Neurological: no change Internal Medicine Assmt/Plan - Assessment Assessment: ACUTE APPENDICITIS AND SP LAP.APPENDECTOMY. - Plan Plan: CONTINUE ON CURRENT MEDICATION AND DIET.
[2018-05-18] MEDS: metroNIDAZOLE 500mg/NS 100mL 500 MG/100 ML BAG IV SCH ×3 (05:04→21:33)
[2018-05-18] MEDS: Morphine Sulfate 4 mg/mL 1mL Syr IV PRN ×3 (08:44→21:34)
--- NOTE | 2018-05-18 09:31 | General Progress Note ---
Subjective - Review of Systems Service Date: 05/18/18 Events since last encounter: DOLLY drainage 45 cc had BM await C and S prior to DC Objective - Results Result Diagrams: 05/17/18 14:56 05/17/18 05:30 Recent Labs: Laboratory Last Values WBC 8.1 Th/cmm (4.8-10.8) 05/17/18 14:56 RBC 3.96 Mil/cmm (3.80-5.10) 05/17/18 14:56 Hgb 12.5 gm/dL (12-16) 05/17/18 14:56 Hct 36.2 % (41.0-60) L 05/17/18 14:56 MCV 91.5 fl (81-100) 05/17/18 14:56 MCH 31.6 pg (27.0-31.0) H 05/17/18 14:56 MCHC Differential 34.5 pg (28.0-36.0) 05/17/18 14:56 RDW 13.3 % (11.5-20.0) 05/17/18 14:56 Plt Count 168 Th/cmm (150-400) 05/17/18 14:56 MPV 8.9 fl 05/17/18 14:56 Neutrophils % 79.2 % (40.0-80.0) 05/17/18 14:56 Lymphocytes % 11.8 % (20.0-50.0) L 05/17/18 14:56 Monocytes % 5.6 % (2.0-10.0) 05/17/18 14:56 Eosinophils % 2.3 % (0.0-5.0) 05/17/18 14:56 Basophils % 1.1 % (0.0-2.0) 05/17/18 14:56 Neutrophils (Manual) Not Reportable 05/16/18 11:00 PT 9.6 SECONDS (9.5-11.5) 05/16/18 11:00 INR 0.92 (0.5-1.4) 05/16/18 11:00 Sodium 138 mEq/L (136-145) 05/17/18 05:30 Potassium 3.8 mEq/L (3.5-5.1) 05/17/18 05:30 Chloride 108 mEq/L (98-107) H 05/17/18 05:30 Carbon Dioxide 21.5 mEq/L (21.0-31.0) 05/17/18 05:30 Anion Gap 12.3 (7.0-16.0) 05/17/18 05:30 BUN 18 mg/dL (7-25) 05/17/18 05:30 Creatinine 0.9 mg/dL (0.6-1.2) 05/17/18 05:30 Est GFR ( Amer) > 60.0 ml/min (>90) 05/17/18 05:30 Est GFR (Non-Af Amer) > 60.0 ml/min 05/17/18 05:30 BUN/Creatinine Ratio 20.0 05/17/18 05:30 Glucose 123 mg/dL (70-105) H 05/17/18 05:30 POC Glucose 128 MG/DL (70 - 105) H 05/16/18 18:16 Calcium 8.5 mg/dL (8.6-10.3) L 05/17/18 05:30 Total Bilirubin 0.9 mg/dL (0.3-1.0) 05/17/18 05:30 AST 26 U/L (13-39) 05/17/18 05:30 ALT 39 U/L (7-52) 05/17/18 05:30 Alkaline Phosphatase 70 U/L (34-104) 05/17/18 05:30 Creatine Kinase 27 U/L (30-223) L 05/16/18 11:00 Troponin I < 0.01 ng/mL (0.01-0.05) L 05/16/18 11:00 B-Natriuretic Peptide 10.4 pg/mL (5.0-100.0) 05/16/18 11:00 Total Protein 6.2 gm/dL (6.0-8.3) 05/17/18 05:30 Albumin 3.4 gm/dL (3.7-5.3) L 05/17/18 05:30 Globulin 2.8 gm/dL 05/17/18 05:30 Albumin/Globulin Ratio 1.2 (1.0-1.8) 05/17/18 05:30 Triglycerides 144 mg/dL (<150) 05/16/18 11:00 Cholesterol 256 mg/dL (<200) H 05/16/18 11:00 LDL Cholesterol Direct 173 mg/dL (75-193) 05/16/18 11:00 HDL Cholesterol 64 mg/dL (23-92) 05/16/18 11:00 Amylase 13 U/L (29-103) L 05/16/18 11:00 Lipase 11 U/L (11-82) 05/16/18 11:00 Serum , Qual NEGATIVE (NEGATIVE) 05/16/18 11:00 Urine Source CLEAN C 05/16/18 13:29 Urine Color YELLOW 05/16/18 13:29 Urine Clarity HAZY (CLEAR) 05/16/18 13:29 Urine pH 6.0 (4.6 - 8.0) 05/16/18 13:29 Ur Specific [place] 1.010 (1.005-1.030) 05/16/18 13:29 Urine Protein TRACE mg/dL (NEGATIVE) 05/16/18 13:29 Urine Glucose (UA) NEGATIVE mg/dL (NEGATIVE) 05/16/18 13:29 Urine Ketones TRACE mg/dL (NEGATIVE) 05/16/18 13:29 Urine Blood TRACE (NEGATIVE) 05/16/18 13:29 Urine Nitrate NEGATIVE (NEGATIVE) 05/16/18 13:29 Urine Bilirubin SMALL (NEGATIVE) H 05/16/18 13:29 Urine Urobilinogen 2.0 E.U./dL (0.2 - 1.0) 05/16/18 13:29 Ur Leukocyte Esterase TRACE (NEGATIVE) H 05/16/18 13:29 Urine RBC 2-5 /hpf (0-5) 05/16/18 13:29 Urine WBC 6-10 /hpf (0-5) H 05/16/18 13:29 Ur Epithelial Cells MODERATE /lpf (FEW) 05/16/18 13:29 Urine Bacteria 1+ /hpf (NONE SEEN) H 05/16/18 13:29 Fine Granular Casts 0-2 /lpf (NONE SEEN) H 05/16/18 13:29 Coarse Granular Casts 2-5 /lpf (NONE SEEN) H 05/16/18 13:29 - Physical Exam Vitals and I&O: Vital Signs Temp 97.4 F 05/18/18 08:00 Pulse 81 05/18/18 08:00 Resp 19 05/18/18 08:00 BP 134/65 05/18/18 08:00 Pulse Ox 96 05/18/18 08:00 Intake & Output 05/17/18 05/18/18 05/18/18 18:59 06:59 18:59 Intake Total 1300 150 Output Total 45 Balance 1300 105 Weight (lbs) 84.822 kg Intake: Intake, IV Amount 1300 150 D5-0.9NS w/KCL 20mEq 1, 1000 000 ml @ 125 mls/hr IV . Q8H [facility] Rx#:[id number] Piperacillin Sodium/ 100 50 Tazobact 3.375 gm In Sodium Chloride 0.9% 50 ml @ 100 mls/hr IV Q6HR [facility] Rx#:[id number] metroNIDAZOLE 500mg/NS 200 100 100mL 500 mg In 100 ml @ 100 mls/hr IV Q8HR [facility] Rx #:[id number] Output: Drainage 45 Lower Medial Abdomen 45 Other: # Voids 3 # Bowel Movements 1 Weight Source Estimated Active Medications: Current Medications Potassium Chloride/Dextrose/Sod Cl (D5-0.9ns W/Kcl 20meq) 1,000 mls @ 125 mls/ hr IV .Q8H [facility] Stop: 07/15/18 15:51 Last Admin: 05/17/18 23:38 Dose: 125 mls/hr Piperacillin Sod/Tazobactam (Sod 3.375 gm/ Sodium Chloride) 50 mls @ 100 mls/ hr IV Q6HR [facility] Stop: 07/15/18 17:59 Last Admin: 05/18/18 05:52 Dose: 100 mls/hr Metronidazole (Flagyl) 500 mg in 100 mls @ 100 mls/hr IV Q8HR [facility] Stop: 07/15/18 20:59 Last Admin: 05/18/18 05:04 Dose: 100 mls/hr Morphine Sulfate (Morphine) 4 mg IV Q4H PRN PRN Reason: Pain (Severe) Stop: 07/15/18 15:59 Last Admin: 05/18/18 08:44 Dose: 4 mg - Procedures Procedures: Procedures Procedure Code Date INSPECTION OF LOWER INTESTINAL TRACT, PERC ENDO APPROACH [id number] 05/16/18 RESECTION OF APPENDIX, OPEN APPROACH [id number] 05/16/18
[2018-05-18] MEDS: D5-0.9NS w/KCL 20mEq 1,000 ML IV SCH (15:28)
--- NOTE | 2018-05-18 19:03 | Pathology Report ---
[id number] Collection Date: 05/16/2018 Surgeon: Dr. Tera Butterfield Specimen Description: Appendix Gross Description: Received in formalin is a 7.5 cm in length x 1.2 cm in diameter tejada-vang appendix with exudate coating the outer surface of the specimen and involving a small portion of attached yellow fatty tissue. An area of fragmentation is seen in the middle portion of the appendix where the muscular wall is disrupted, consistent with perforation of the appendix. This area of perforation measures approximately 0.8 cm. Sectioning of the remainder of the appendix shows an otherwise intact muscular wall. There are no mass lesions. [employer] sections are submitted in three cassettes, labeled A1 to A3. Cassette A1 and A2 show the middle appendix, cassette A3 shows the tip of appendix. Microscopic Description: The histologic sections show appendix with extensive acute inflammation seen extending through the muscular wall and also involving the mucosal surfaces. The inflammatory cells consist of mostly neutrophils, consistent with acute appendicitis. There is also fragmentation and disruption of the muscular wall, consistent with an area of perforation. Diagnosis: Acute appendicitis with perforation. [facility]# [id number] [facility]
--- NOTE | 2018-05-18 22:23 | Internal Medicine Prog Note ---
Internal Medicine Subjective - Subjective Service Date: 05/18/18 Patient seen and examined:: with staff (SHE FEELS BETTER) Patient is:: in bed, talking Patient Complaints of:: other (SHE HAS PAIN AT SITE OF SURGERY) Per staff patient has:: no adverse event Internal Medicine Objective - Results Result Diagrams: 05/17/18 14:56 05/17/18 05:30 Recent Labs: Laboratory Last Values WBC 8.1 Th/cmm (4.8-10.8) 05/17/18 14:56 RBC 3.96 Mil/cmm (3.80-5.10) 05/17/18 14:56 Hgb 12.5 gm/dL (12-16) 05/17/18 14:56 Hct 36.2 % (41.0-60) L 05/17/18 14:56 MCV 91.5 fl (81-100) 05/17/18 14:56 MCH 31.6 pg (27.0-31.0) H 05/17/18 14:56 MCHC Differential 34.5 pg (28.0-36.0) 05/17/18 14:56 RDW 13.3 % (11.5-20.0) 05/17/18 14:56 Plt Count 168 Th/cmm (150-400) 05/17/18 14:56 MPV 8.9 fl 05/17/18 14:56 Neutrophils % 79.2 % (40.0-80.0) 05/17/18 14:56 Lymphocytes % 11.8 % (20.0-50.0) L 05/17/18 14:56 Monocytes % 5.6 % (2.0-10.0) 05/17/18 14:56 Eosinophils % 2.3 % (0.0-5.0) 05/17/18 14:56 Basophils % 1.1 % (0.0-2.0) 05/17/18 14:56 Neutrophils (Manual) Not Reportable 05/16/18 11:00 PT 9.6 SECONDS (9.5-11.5) 05/16/18 11:00 INR 0.92 (0.5-1.4) 05/16/18 11:00 Sodium 138 mEq/L (136-145) 05/17/18 05:30 Potassium 3.8 mEq/L (3.5-5.1) 05/17/18 05:30 Chloride 108 mEq/L (98-107) H 05/17/18 05:30 Carbon Dioxide 21.5 mEq/L (21.0-31.0) 05/17/18 05:30 Anion Gap 12.3 (7.0-16.0) 05/17/18 05:30 BUN 18 mg/dL (7-25) 05/17/18 05:30 Creatinine 0.9 mg/dL (0.6-1.2) 05/17/18 05:30 Est GFR ( Amer) > 60.0 ml/min (>90) 05/17/18 05:30 Est GFR (Non-Af Amer) > 60.0 ml/min 05/17/18 05:30 BUN/Creatinine Ratio 20.0 05/17/18 05:30 Glucose 123 mg/dL (70-105) H 05/17/18 05:30 POC Glucose 128 MG/DL (70 - 105) H 05/16/18 18:16 Calcium 8.5 mg/dL (8.6-10.3) L 05/17/18 05:30 Total Bilirubin 0.9 mg/dL (0.3-1.0) 05/17/18 05:30 AST 26 U/L (13-39) 05/17/18 05:30 ALT 39 U/L (7-52) 05/17/18 05:30 Alkaline Phosphatase 70 U/L (34-104) 05/17/18 05:30 Creatine Kinase 27 U/L (30-223) L 05/16/18 11:00 Troponin I < 0.01 ng/mL (0.01-0.05) L 05/16/18 11:00 B-Natriuretic Peptide 10.4 pg/mL (5.0-100.0) 05/16/18 11:00 Total Protein 6.2 gm/dL (6.0-8.3) 05/17/18 05:30 Albumin 3.4 gm/dL (3.7-5.3) L 05/17/18 05:30 Globulin 2.8 gm/dL 05/17/18 05:30 Albumin/Globulin Ratio 1.2 (1.0-1.8) 05/17/18 05:30 Triglycerides 144 mg/dL (<150) 05/16/18 11:00 Cholesterol 256 mg/dL (<200) H 05/16/18 11:00 LDL Cholesterol Direct 173 mg/dL (75-193) 05/16/18 11:00 HDL Cholesterol 64 mg/dL (23-92) 05/16/18 11:00 Amylase 13 U/L (29-103) L 05/16/18 11:00 Lipase 11 U/L (11-82) 05/16/18 11:00 Serum , Qual NEGATIVE (NEGATIVE) 05/16/18 11:00 Urine Source CLEAN C 05/16/18 13:29 Urine Color YELLOW 05/16/18 13:29 Urine Clarity HAZY (CLEAR) 05/16/18 13:29 Urine pH 6.0 (4.6 - 8.0) 05/16/18 13:29 Ur Specific [facility] 1.010 (1.005-1.030) 05/16/18 13:29 Urine Protein TRACE mg/dL (NEGATIVE) 05/16/18 13:29 Urine Glucose (UA) NEGATIVE mg/dL (NEGATIVE) 05/16/18 13:29 Urine Ketones TRACE mg/dL (NEGATIVE) 05/16/18 13:29 Urine Blood TRACE (NEGATIVE) 05/16/18 13:29 Urine Nitrate NEGATIVE (NEGATIVE) 05/16/18 13:29 Urine Bilirubin SMALL (NEGATIVE) H 05/16/18 13:29 Urine Urobilinogen 2.0 E.U./dL (0.2 - 1.0) 05/16/18 13:29 Ur Leukocyte Esterase TRACE (NEGATIVE) H 05/16/18 13:29 Urine RBC 2-5 /hpf (0-5) 05/16/18 13:29 Urine WBC 6-10 /hpf (0-5) H 05/16/18 13:29 Ur Epithelial Cells MODERATE /lpf (FEW) 05/16/18 13:29 Urine Bacteria 1+ /hpf (NONE SEEN) H 05/16/18 13:29 Fine Granular Casts 0-2 /lpf (NONE SEEN) H 05/16/18 13:29 Coarse Granular Casts 2-5 /lpf (NONE SEEN) H 05/16/18 13:29 - Physical Exam Vitals and I&O: Vital Signs Temp 98 F 05/18/18 16:00 Pulse 89 05/18/18 16:00 Resp 20 05/18/18 16:00 BP 136/82 05/18/18 16:00 Pulse Ox 97 05/18/18 16:00 Intake & Output 05/18/18 05/18/18 05/19/18 06:59 18:59 06:59 Intake Total 300 1150 497.917 Output Total 45 25 Balance 255 1150 472.917 Weight (lbs) 84.822 kg 84.822 kg Intake: Intake, IV Amount 300 1150 497.917 D5-0.9NS w/KCL 20mEq 1, 1000 447.917 000 ml @ 125 mls/hr IV . Q8H [facility] Rx#:[id number] Piperacillin Sodium/ 100 50 50 Tazobact 3.375 gm In Sodium Chloride 0.9% 50 ml @ 100 mls/hr IV Q6HR [facility] Rx#:[id number] metroNIDAZOLE 500mg/NS 200 100 100mL 500 mg In 100 ml @ 100 mls/hr IV Q8HR [facility] Rx #:[id number] Output: Drainage 45 25 Lower Medial Abdomen 45 25 Other: # Voids 3 5 # Bowel Movements 1 1 Weight Source Estimated Estimated Active Medications: Current Medications Potassium Chloride/Dextrose/Sod Cl (D5-0.9ns W/Kcl 20meq) 1,000 mls @ 125 mls/ hr IV .Q8H [facility] Stop: 07/15/18 15:51 Last Infusion: 05/18/18 19:03 Dose: 125 mls/hr Piperacillin Sod/Tazobactam (Sod 3.375 gm/ Sodium Chloride) 50 mls @ 100 mls/ hr IV Q6HR [facility] Stop: 07/15/18 17:59 Last Infusion: 05/18/18 19:03 Dose: Infused Metronidazole (Flagyl) 500 mg in 100 mls @ 100 mls/hr IV Q8HR [facility] Stop: 07/15/18 20:59 Last Admin: 05/18/18 21:33 Dose: 100 mls/hr Morphine Sulfate (Morphine) 4 mg IV Q4H PRN PRN Reason: Pain (Severe) Stop: 07/15/18 15:59 Last Admin: 05/18/18 21:34 Dose: 4 mg General: alert HEENT: NC/AT, PERRLA, EOMI, anicteric sclerae, throat clear Neck: Supple, No JVD, No thyromegaly, +2 carotid pulse wo bruit, No LAD Lungs: CTAB Cardiovascular: RRR, Normal S1, Normal S2 Abdomen: tender Neurological: no change - Procedures Procedures: Procedures Procedure Code Date INSPECTION OF LOWER INTESTINAL TRACT, PERC ENDO APPROACH [id number] 05/16/18 RESECTION OF APPENDIX, OPEN APPROACH [id number] 05/16/18 Internal Medicine Assmt/Plan - Assessment Assessment: ACUTE APPENDICITIS AND SP LAP.APPENDECTOMY. - Plan Plan: CONTINUE ON CURRENT MEDICATION AND DIET.
[2018-05-19] MEDS: D5-0.9NS w/KCL 20mEq 1,000 ML IV SCH ×3 (02:59→20:23)
[2018-05-19] MEDS: metroNIDAZOLE 500mg/NS 100mL 500 MG/100 ML BAG IV SCH ×3 (05:08→20:22)
[2018-05-19] MEDS: Morphine Sulfate 4 mg/mL 1mL Syr IV PRN ×2 (05:14→18:29)
--- NOTE | 2018-05-19 12:12 | General Progress Note ---
Subjective - Review of Systems Service Date: 05/19/18 Events since last encounter: no DOLLY drainage overnight, removed may DC with oral antibiotics and pain pills sponge bath only to my office 1 week Objective - Results Result Diagrams: 05/17/18 14:56 05/17/18 05:30 Recent Labs: Laboratory Last Values WBC 8.1 Th/cmm (4.8-10.8) 05/17/18 14:56 RBC 3.96 Mil/cmm (3.80-5.10) 05/17/18 14:56 Hgb 12.5 gm/dL (12-16) 05/17/18 14:56 Hct 36.2 % (41.0-60) L 05/17/18 14:56 MCV 91.5 fl (81-100) 05/17/18 14:56 MCH 31.6 pg (27.0-31.0) H 05/17/18 14:56 MCHC Differential 34.5 pg (28.0-36.0) 05/17/18 14:56 RDW 13.3 % (11.5-20.0) 05/17/18 14:56 Plt Count 168 Th/cmm (150-400) 05/17/18 14:56 MPV 8.9 fl 05/17/18 14:56 Neutrophils % 79.2 % (40.0-80.0) 05/17/18 14:56 Lymphocytes % 11.8 % (20.0-50.0) L 05/17/18 14:56 Monocytes % 5.6 % (2.0-10.0) 05/17/18 14:56 Eosinophils % 2.3 % (0.0-5.0) 05/17/18 14:56 Basophils % 1.1 % (0.0-2.0) 05/17/18 14:56 Neutrophils (Manual) Not Reportable 05/16/18 11:00 PT 9.6 SECONDS (9.5-11.5) 05/16/18 11:00 INR 0.92 (0.5-1.4) 05/16/18 11:00 Sodium 138 mEq/L (136-145) 05/17/18 05:30 Potassium 3.8 mEq/L (3.5-5.1) 05/17/18 05:30 Chloride 108 mEq/L (98-107) H 05/17/18 05:30 Carbon Dioxide 21.5 mEq/L (21.0-31.0) 05/17/18 05:30 Anion Gap 12.3 (7.0-16.0) 05/17/18 05:30 BUN 18 mg/dL (7-25) 05/17/18 05:30 Creatinine 0.9 mg/dL (0.6-1.2) 05/17/18 05:30 Est GFR ( Amer) > 60.0 ml/min (>90) 05/17/18 05:30 Est GFR (Non-Af Amer) > 60.0 ml/min 05/17/18 05:30 BUN/Creatinine Ratio 20.0 05/17/18 05:30 Glucose 123 mg/dL (70-105) H 05/17/18 05:30 POC Glucose 128 MG/DL (70 - 105) H 05/16/18 18:16 Calcium 8.5 mg/dL (8.6-10.3) L 05/17/18 05:30 Total Bilirubin 0.9 mg/dL (0.3-1.0) 05/17/18 05:30 AST 26 U/L (13-39) 05/17/18 05:30 ALT 39 U/L (7-52) 05/17/18 05:30 Alkaline Phosphatase 70 U/L (34-104) 05/17/18 05:30 Creatine Kinase 27 U/L (30-223) L 05/16/18 11:00 Troponin I < 0.01 ng/mL (0.01-0.05) L 05/16/18 11:00 B-Natriuretic Peptide 10.4 pg/mL (5.0-100.0) 05/16/18 11:00 Total Protein 6.2 gm/dL (6.0-8.3) 05/17/18 05:30 Albumin 3.4 gm/dL (3.7-5.3) L 05/17/18 05:30 Globulin 2.8 gm/dL 05/17/18 05:30 Albumin/Globulin Ratio 1.2 (1.0-1.8) 05/17/18 05:30 Triglycerides 144 mg/dL (<150) 05/16/18 11:00 Cholesterol 256 mg/dL (<200) H 05/16/18 11:00 LDL Cholesterol Direct 173 mg/dL (75-193) 05/16/18 11:00 HDL Cholesterol 64 mg/dL (23-92) 05/16/18 11:00 Amylase 13 U/L (29-103) L 05/16/18 11:00 Lipase 11 U/L (11-82) 05/16/18 11:00 Serum , Qual NEGATIVE (NEGATIVE) 05/16/18 11:00 Urine Source CLEAN C 05/16/18 13:29 Urine Color YELLOW 05/16/18 13:29 Urine Clarity HAZY (CLEAR) 05/16/18 13:29 Urine pH 6.0 (4.6 - 8.0) 05/16/18 13:29 Ur Specific [place] 1.010 (1.005-1.030) 05/16/18 13:29 Urine Protein TRACE mg/dL (NEGATIVE) 05/16/18 13:29 Urine Glucose (UA) NEGATIVE mg/dL (NEGATIVE) 05/16/18 13:29 Urine Ketones TRACE mg/dL (NEGATIVE) 05/16/18 13:29 Urine Blood TRACE (NEGATIVE) 05/16/18 13:29 Urine Nitrate NEGATIVE (NEGATIVE) 05/16/18 13:29 Urine Bilirubin SMALL (NEGATIVE) H 05/16/18 13:29 Urine Urobilinogen 2.0 E.U./dL (0.2 - 1.0) 05/16/18 13:29 Ur Leukocyte Esterase TRACE (NEGATIVE) H 05/16/18 13:29 Urine RBC 2-5 /hpf (0-5) 05/16/18 13:29 Urine WBC 6-10 /hpf (0-5) H 05/16/18 13:29 Ur Epithelial Cells MODERATE /lpf (FEW) 05/16/18 13:29 Urine Bacteria 1+ /hpf (NONE SEEN) H 05/16/18 13:29 Fine Granular Casts 0-2 /lpf (NONE SEEN) H 05/16/18 13:29 Coarse Granular Casts 2-5 /lpf (NONE SEEN) H 05/16/18 13:29 - Physical Exam Vitals and I&O: Vital Signs Temp 97.6 F 05/19/18 08:00 Pulse 80 05/19/18 08:00 Resp 17 05/19/18 08:00 BP 147/76 05/19/18 08:00 Pulse Ox 97 05/19/18 08:00 Intake & Output 05/18/18 05/19/18 05/19/18 18:59 06:59 18:59 Intake Total 1150 1700.000 Output Total 35 Balance 1150 1665.000 Weight (lbs) 84.822 kg Intake: Intake, IV Amount 1150 1350.000 D5-0.9NS w/KCL 20mEq 1, 1000 1000.000 000 ml @ 125 mls/hr IV . Q8H [facility] Rx#:[id number] Piperacillin Sodium/ 50 150 Tazobact 3.375 gm In Sodium Chloride 0.9% 50 ml @ 100 mls/hr IV Q6HR [facility] Rx#:[id number] metroNIDAZOLE 500mg/NS 100 200 100mL 500 mg In 100 ml @ 100 mls/hr IV Q8HR [facility] Rx #:[id number] Oral 350 Output: Drainage 35 Lower Medial Abdomen 35 Other: # Voids 3 # Bowel Movements 1 Weight Source Bedscale Active Medications: Current Medications Potassium Chloride/Dextrose/Sod Cl (D5-0.9ns W/Kcl 20meq) 1,000 mls @ 125 mls/ hr IV .Q8H [facility] Stop: 07/15/18 15:51 Last Admin: 05/19/18 02:59 Dose: 125 mls/hr Piperacillin Sod/Tazobactam (Sod 3.375 gm/ Sodium Chloride) 50 mls @ 100 mls/ hr IV Q6HR [facility] Stop: 07/15/18 17:59 Last Admin: 05/19/18 11:33 Dose: 100 mls/hr Metronidazole (Flagyl) 500 mg in 100 mls @ 100 mls/hr IV Q8HR [facility] Stop: 07/15/18 20:59 Last Infusion: 05/19/18 06:08 Dose: Infused Morphine Sulfate (Morphine) 4 mg IV Q4H PRN PRN Reason: Pain (Severe) Stop: 07/15/18 15:59 Last Admin: 05/19/18 05:14 Dose: 4 mg - Procedures Procedures: Procedures Procedure Code Date INSPECTION OF LOWER INTESTINAL TRACT, PERC ENDO APPROACH [id number] 05/16/18 RESECTION OF APPENDIX, OPEN APPROACH [id number] 05/16/18
--- NOTE | 2018-05-19 22:51 | Internal Medicine Prog Note ---
Internal Medicine Subjective - Subjective Service Date: 05/19/18 Patient seen and examined:: with staff (SHE FEELS WELL,LESS PAIN) Patient is:: in bed, talking Patient Complaints of:: other (SHE HAS PAIN AT SITE OF SURGERY) Per staff patient has:: no adverse event Internal Medicine Objective - Results Result Diagrams: 05/17/18 14:56 05/17/18 05:30 Recent Labs: Laboratory Last Values WBC 8.1 Th/cmm (4.8-10.8) 05/17/18 14:56 RBC 3.96 Mil/cmm (3.80-5.10) 05/17/18 14:56 Hgb 12.5 gm/dL (12-16) 05/17/18 14:56 Hct 36.2 % (41.0-60) L 05/17/18 14:56 MCV 91.5 fl (81-100) 05/17/18 14:56 MCH 31.6 pg (27.0-31.0) H 05/17/18 14:56 MCHC Differential 34.5 pg (28.0-36.0) 05/17/18 14:56 RDW 13.3 % (11.5-20.0) 05/17/18 14:56 Plt Count 168 Th/cmm (150-400) 05/17/18 14:56 MPV 8.9 fl 05/17/18 14:56 Neutrophils % 79.2 % (40.0-80.0) 05/17/18 14:56 Lymphocytes % 11.8 % (20.0-50.0) L 05/17/18 14:56 Monocytes % 5.6 % (2.0-10.0) 05/17/18 14:56 Eosinophils % 2.3 % (0.0-5.0) 05/17/18 14:56 Basophils % 1.1 % (0.0-2.0) 05/17/18 14:56 Neutrophils (Manual) Not Reportable 05/16/18 11:00 PT 9.6 SECONDS (9.5-11.5) 05/16/18 11:00 INR 0.92 (0.5-1.4) 05/16/18 11:00 Sodium 138 mEq/L (136-145) 05/17/18 05:30 Potassium 3.8 mEq/L (3.5-5.1) 05/17/18 05:30 Chloride 108 mEq/L (98-107) H 05/17/18 05:30 Carbon Dioxide 21.5 mEq/L (21.0-31.0) 05/17/18 05:30 Anion Gap 12.3 (7.0-16.0) 05/17/18 05:30 BUN 18 mg/dL (7-25) 05/17/18 05:30 Creatinine 0.9 mg/dL (0.6-1.2) 05/17/18 05:30 Est GFR ( Amer) > 60.0 ml/min (>90) 05/17/18 05:30 Est GFR (Non-Af Amer) > 60.0 ml/min 05/17/18 05:30 BUN/Creatinine Ratio 20.0 05/17/18 05:30 Glucose 123 mg/dL (70-105) H 05/17/18 05:30 POC Glucose 128 MG/DL (70 - 105) H 05/16/18 18:16 Calcium 8.5 mg/dL (8.6-10.3) L 05/17/18 05:30 Total Bilirubin 0.9 mg/dL (0.3-1.0) 05/17/18 05:30 AST 26 U/L (13-39) 05/17/18 05:30 ALT 39 U/L (7-52) 05/17/18 05:30 Alkaline Phosphatase 70 U/L (34-104) 05/17/18 05:30 Creatine Kinase 27 U/L (30-223) L 05/16/18 11:00 Troponin I < 0.01 ng/mL (0.01-0.05) L 05/16/18 11:00 B-Natriuretic Peptide 10.4 pg/mL (5.0-100.0) 05/16/18 11:00 Total Protein 6.2 gm/dL (6.0-8.3) 05/17/18 05:30 Albumin 3.4 gm/dL (3.7-5.3) L 05/17/18 05:30 Globulin 2.8 gm/dL 05/17/18 05:30 Albumin/Globulin Ratio 1.2 (1.0-1.8) 05/17/18 05:30 Triglycerides 144 mg/dL (<150) 05/16/18 11:00 Cholesterol 256 mg/dL (<200) H 05/16/18 11:00 LDL Cholesterol Direct 173 mg/dL (75-193) 05/16/18 11:00 HDL Cholesterol 64 mg/dL (23-92) 05/16/18 11:00 Amylase 13 U/L (29-103) L 05/16/18 11:00 Lipase 11 U/L (11-82) 05/16/18 11:00 Serum , Qual NEGATIVE (NEGATIVE) 05/16/18 11:00 Urine Source CLEAN C 05/16/18 13:29 Urine Color YELLOW 05/16/18 13:29 Urine Clarity HAZY (CLEAR) 05/16/18 13:29 Urine pH 6.0 (4.6 - 8.0) 05/16/18 13:29 Ur Specific [place] 1.010 (1.005-1.030) 05/16/18 13:29 Urine Protein TRACE mg/dL (NEGATIVE) 05/16/18 13:29 Urine Glucose (UA) NEGATIVE mg/dL (NEGATIVE) 05/16/18 13:29 Urine Ketones TRACE mg/dL (NEGATIVE) 05/16/18 13:29 Urine Blood TRACE (NEGATIVE) 05/16/18 13:29 Urine Nitrate NEGATIVE (NEGATIVE) 05/16/18 13:29 Urine Bilirubin SMALL (NEGATIVE) H 05/16/18 13:29 Urine Urobilinogen 2.0 E.U./dL (0.2 - 1.0) 05/16/18 13:29 Ur Leukocyte Esterase TRACE (NEGATIVE) H 05/16/18 13:29 Urine RBC 2-5 /hpf (0-5) 05/16/18 13:29 Urine WBC 6-10 /hpf (0-5) H 05/16/18 13:29 Ur Epithelial Cells MODERATE /lpf (FEW) 05/16/18 13:29 Urine Bacteria 1+ /hpf (NONE SEEN) H 05/16/18 13:29 Fine Granular Casts 0-2 /lpf (NONE SEEN) H 05/16/18 13:29 Coarse Granular Casts 2-5 /lpf (NONE SEEN) H 05/16/18 13:29 - Physical Exam Vitals and I&O: Vital Signs Temp 98.0 F 05/19/18 22:39 Pulse 72 07/27/18 22:39 Resp 79 05/19/18 22:39 BP 133/74 05/19/18 22:39 Pulse Ox 95 05/19/18 22:39 Intake & Output 05/19/18 05/19/18 05/20/18 06:59 18:59 06:59 Intake Total 2102.094 5226 1050 Output Total 35 10 Balance 3640.141 8979 1050 Weight (lbs) 84.822 kg 84.822 kg Intake: Intake, IV Amount 2208.822 9727 1050 D5-0.9NS w/KCL 20mEq 1, 7786.796 4427 950 000 ml @ 125 mls/hr IV . Q8H [facility] Rx#:[id number] Piperacillin Sodium/ 150 50 Tazobact 3.375 gm In Sodium Chloride 0.9% 50 ml @ 100 mls/hr IV Q6HR [facility] Rx#:[id number] metroNIDAZOLE 500mg/NS 200 100 100 100mL 500 mg In 100 ml @ 100 mls/hr IV Q8HR [facility] Rx #:[id number] Oral 350 650 Output: Drainage 35 10 Lower Medial Abdomen 35 10 Other: # Voids 3 3 # Bowel Movements 1 1 Weight Source Bedscale Bedscale Active Medications: Current Medications Potassium Chloride/Dextrose/Sod Cl (D5-0.9ns W/Kcl 20meq) 1,000 mls @ 125 mls/ hr IV .Q8H [facility] Stop: 07/15/18 15:51 Last Admin: 05/19/18 20:23 Dose: 125 mls/hr Piperacillin Sod/Tazobactam (Sod 3.375 gm/ Sodium Chloride) 50 mls @ 100 mls/ hr IV Q6HR [facility] Stop: 07/15/18 17:59 Last Admin: 05/19/18 17:04 Dose: 100 mls/hr Metronidazole (Flagyl) 500 mg in 100 mls @ 100 mls/hr IV Q8HR [facility] Stop: 07/15/18 20:59 Last Infusion: 05/19/18 21:22 Dose: Infused General: alert HEENT: NC/AT, PERRLA, EOMI, anicteric sclerae, throat clear Neck: Supple, No JVD, No thyromegaly, +2 carotid pulse wo bruit, No LAD Lungs: CTAB Cardiovascular: RRR, Normal S1, Normal S2 Abdomen: tender Neurological: no change - Procedures Procedures: Procedures Procedure Code Date INSPECTION OF LOWER INTESTINAL TRACT, PERC ENDO APPROACH [id number] 05/16/18 RESECTION OF APPENDIX, OPEN APPROACH [id number] 05/16/18 Internal Medicine Assmt/Plan - Assessment Assessment: ACUTE APPENDICITIS AND SP LAP.APPENDECTOMY. - Plan Plan: CONTINUE ON CURRENT MEDICATION AND DIET.
[2018-05-20] MEDS: D5-0.9NS w/KCL 20mEq 1,000 ML IV SCH (00:48)
[2018-05-20] MEDS: metroNIDAZOLE 500mg/NS 100mL 500 MG/100 ML BAG IV SCH (05:13)
--- NOTE | 2018-06-22 17:45 | Discharge Summary ---
DATE OF DISCHARGE: 05/20/2018 FINAL DIAGNOSES: 1. Acute appendicitis. 2. Status post laparoscopic appendectomy. HISTORY OF PRESENT ILLNESS: The patient is a 47-year-old female presented to the Emergency Room with acute abdomen. Initial workup significant for acute appendicitis. Admitted to the hospital. Dr. Butterfield consulted on the case. LABORATORY DATA: White blood cell of 16, hemoglobin 14.6, and hematocrit 42.9. Sodium 132 and potassium 3.2. Started IV fluid, antibiotic. COURSE OF HOSPITALIZATION: During hospitalization, the patient underwent laparoscopic appendectomy by Dr. Butterfield. The patient tolerated the surgery well. On 05/19/2018, the patient was feeling better, less pain, no nausea, no vomiting. DISPOSITION: On 05/20/2018, the patient was cleared by Surgery to go home. The patient discharged home. FOLLOWUP: Follow up with Dr. Butterfield as outpatient. CONDITION ON DISCHARGE: Stable. MEDICATIONS: Follow discharge reconciliation. [facility]# [id number]
== END 2018-05-20 07:48 | disposition home or self-care (01) | DRG 233 ==
LOC: ER 10:21 → MSI 16:00
PROVIDERS: ADMIT Family Medicine; ATTEND Family Medicine
PROC: 0DTJ4ZZ Resection of Appendix, Percutaneous Endoscopic Approach (ICD-10-PCS; principal; 2018-05-16)
DX: K35.2 Acute appendicitis with generalized peritonitis (principal); K76.0 Fatty (change of) liver, not elsewhere classified; E87.1 Hypo-osmolality and hyponatremia; K42.0 Umbilical hernia with obstruction, without gangrene; E78.5 Hyperlipidemia, unspecified; I10 Essential (primary) hypertension; N39.0 Urinary tract infection, site not specified; K52.9 Noninfective gastroenteritis and colitis, unspecified; N20.0 Calculus of kidney; E86.0 Dehydration; E87.6 Hypokalemia; E78.00 Pure hypercholesterolemia, unspecified; E66.8 Other obesity; Z86.73 Personal history of transient ischemic attack (TIA), and cerebral infarction without residual deficits; Z82.49 Family history of ischemic heart disease and other diseases of the circulatory system; Z90.710 Acquired absence of both cervix and uterus; Z68.31 Body mass index [BMI] 31.0-31.9, adult
CPT/HCPCS: 36415-UA; 71045-TC; 80053-TC; 80061-TC; 81001-TC; 82150-TC; 82550-TC; 82948-90; 83690-TC; 83880-TC; 84484-TC; 84703-TC; 85007-TC; 85025-TC; 85610-TC; 87070-90; 87075-90; 87086-90; 87205-90; 88304-TC; 90799; 93005; 94760; 96375; 96376; J0696; J1885; J2270; J2405; J2543; J2710; J3010; J7030; X6258; Z7610